=== PATIENT | female | born 1935 | race Caucasian/White ===

== ENCOUNTER 2022-08-28 12:57 | Inpatient (IN) | payer OTHER ==
[2022-08-28 14:22] LABS: VENOUS BASE EXCESS 3.5 mmol/L (-2-2); VENOUS PH 7.396 (7.310-7.410)
[2022-08-28 14:28] LABS: INR 1.12 (0.83-1.09)
[2022-08-28 14:29] LABS: BASO % 0.7 % (0-2.0); EOS % 1.6 % (0-4.5); HEMATOCRIT 47.2 % (32.4-45.2); HEMOGLOBIN 15.3 GM/dL (10.7-15.3); LYMPH % 17.4 % (8-40); MCH 29.6 pg (25.7-33.7); MCHC 32.4 g/dl (32.0-36.0); MEAN CELL VOLUME 91.1 fl (80-96); MEAN PLT VOLUME 8.8 fl (7.5-11.1); MONO % 8.9 % (3.8-10.2); NEUT % 71.4 % (42.8-82.8); PLATELET COUNT 253 10^3/uL (134-434); RBC 5.18 M/mm3 (3.60-5.2); RDW 15.8 % (11.6-15.6)
[2022-08-28 14:31] LABS: ACTIVATED PTT 28.8 SECONDS (25.2-36.5)
[2022-08-28 14:45] LABS: POTASSIUM 4.1 mmol/L (3.5-5.1)
[2022-08-28 14:47] LABS: CALCIUM 8.9 mg/dL (8.5-10.1)
[2022-08-28 14:48] LABS: ALBUMIN 3.5 g/dl (3.4-5.0); MAGNESIUM 2.2 mg/dL (1.8-2.4)
[2022-08-28 14:51] LABS: CREATININE 0.8 mg/dL (0.55-1.3); PHOSPHOROUS 2.6 mg/dL (2.5-4.9)
[2022-08-28 14:52] LABS: TOT PROT 6.6 g/dl (6.4-8.2)
[2022-08-28 14:53] LABS: BILIRUBIN,TOTAL 0.7 mg/dL (0.2-1)
[2022-08-28 14:56] LABS: N-TERMINAL BNP 6626.7 pg/ml (5-450)
[2022-08-28 15:07] LABS: BLOOD UREA NITROGEN 22.4 mg/dL (7-18)
[2022-08-28] MEDS ORDERED: FUROSEMIDE 40 MG/4 ML INJECTABLE VIAL IVPUSH ONE (15:51)
[2022-08-28] MEDS ORDERED: FUROSEMIDE 40 MG/4 ML INJECTABLE VIAL ONE (15:57)
[2022-08-28 16:40] LABS: EPI CELLS 19 /uL (0-25.1); HYALINE CASTS 0 /uL (0-3.1); PH,URINE 7.5 (5.0-8.0); URINE APPEARANCE CLEAR; URINE BACTERIA 206 /uL (0-1359); URINE BILIRUBIN NEGATIVE (NEGATIVE); URINE COLOR YELLOW; URINE GLUCOSE (UA) NEGATIVE (NEGATIVE); URINE KETONE NEGATIVE (NEGATIVE); URINE LEUK ESTERASE 2+ (NEGATIVE); URINE NITRITE NEGATIVE (NEGATIVE); URINE PROTEIN NEGATIVE (NEGATIVE); URINE RBC 9 /uL (0-23.9); URINE WBC 18 /uL (0-25.8)
[2022-08-28] MEDS ORDERED: METOPROLOL TARTRATE 5 MG/5 ML VIAL IVPUSH ONE (17:54)
[2022-08-28] MEDS: metoPROLOL SUCCINATE 25 MG TAB.SR.24H (FP) PO SCH (18:53)
[2022-08-28] MEDS: APIXABAN 2.5 MG TABLET PO SCH (21:06)
[2022-08-28] MEDS ORDERED: PATIENT'S OWN MEDICATION (NON-FORMULARY) (Dorzolamide/Timolol/Pf [Dorzolamide-Timolol 2%-0 OU SCH (22:00)
[2022-08-28] MEDS: TIMOLOL 0.5% OPHTHALMIC SOL 5 ML BOTTLE OU SCH (22:25)
[2022-08-28] MEDS: BUDESONIDE/FORMETEROL FUMARATE 160/4.5 mcg INHALER IH SCH (22:25)
[2022-08-28] MEDS: LATANOPROST 0.005% OPHTH SOLN 2.5ML BOTTLE OU SCH (22:25)
[2022-08-28] MEDS: DORZOLAMIDE 2% HCL OPHTHALMIC SOLUTION 10 ML BOTTLE OU SCH (22:25)
[2022-08-29 07:39] LABS: HEMATOCRIT 44.5 % (32.4-45.2); HEMOGLOBIN 14.4 GM/dL (10.7-15.3); MCH 29.5 pg (25.7-33.7); MCHC 32.3 g/dl (32.0-36.0); MEAN CELL VOLUME 91.1 fl (80-96); MEAN PLT VOLUME 8.4 fl (7.5-11.1); PLATELET COUNT 220 10^3/uL (134-434); RBC 4.88 M/mm3 (3.60-5.2); RDW 15.5 % (11.6-15.6); WHITE BLOOD COUNT 7.4 K/mm3 (4.0-10.0)
[2022-08-29 08:03] LABS: BLOOD UREA NITROGEN 25.7 mg/dL (7-18); CALCIUM 9.1 mg/dL (8.5-10.1)
[2022-08-29 08:06] LABS: CREATININE 0.8 mg/dL (0.55-1.3)
[2022-08-29 08:07] LABS: TOT PROT 5.7 g/dl (6.4-8.2)
[2022-08-29 08:08] LABS: BILIRUBIN,TOTAL 0.8 mg/dL (0.2-1)
[2022-08-29] MEDS: ALBUTEROL SO4 2.5/IPRATROPIUM 0.5 INH SOL 3 ML VIAL.NEB. NEB SCH ×4 (08:34→20:05)
[2022-08-29] MEDS: APIXABAN 2.5 MG TABLET PO SCH ×2 (11:19→21:21)
[2022-08-29] MEDS: metoPROLOL SUCCINATE 25 MG TAB.SR.24H (FP) PO SCH (11:19)
[2022-08-29] MEDS: FUROSEMIDE 40 MG/4 ML INJECTABLE VIAL IVPUSH SCH (11:20)
[2022-08-29] MEDS: BUDESONIDE/FORMETEROL FUMARATE 160/4.5 mcg INHALER IH SCH ×2 (11:21→21:21)
[2022-08-29] MEDS: TIMOLOL 0.5% OPHTHALMIC SOL 5 ML BOTTLE OU SCH ×2 (11:22→21:21)
[2022-08-29] MEDS: DORZOLAMIDE 2% HCL OPHTHALMIC SOLUTION 10 ML BOTTLE OU SCH ×2 (11:22→21:21)
[2022-08-29] MEDS: LATANOPROST 0.005% OPHTH SOLN 2.5ML BOTTLE OU SCH (21:21)
[2022-08-30 07:35] LABS: EOS % 4.6 % (0-4.5); HEMATOCRIT 43.1 % (32.4-45.2); LYMPH % 17.1 % (8-40); MCH 30.3 pg (25.7-33.7); MCHC 32.5 g/dl (32.0-36.0); MEAN CELL VOLUME 93.4 fl (80-96); MEAN PLT VOLUME 8.6 fl (7.5-11.1); MONO % 9.1 % (3.8-10.2); NEUT % 68.2 % (42.8-82.8); PLATELET COUNT 210 10^3/uL (134-434); RBC 4.61 M/mm3 (3.60-5.2); RDW 15.9 % (11.6-15.6); WHITE BLOOD COUNT 7.6 K/mm3 (4.0-10.0)
[2022-08-30] MEDS: ALBUTEROL SO4 2.5/IPRATROPIUM 0.5 INH SOL 3 ML VIAL.NEB. NEB SCH ×4 (07:40→19:50)
[2022-08-30 07:49] LABS: POTASSIUM 4.8 mmol/L (3.5-5.1)
[2022-08-30 08:01] LABS: BLOOD UREA NITROGEN 25.3 mg/dL (7-18)
[2022-08-30 08:04] LABS: CREATININE 0.7 mg/dL (0.55-1.3)
[2022-08-30] MEDS: FUROSEMIDE 40 MG/4 ML INJECTABLE VIAL IVPUSH SCH (10:09)
[2022-08-30] MEDS: metoPROLOL SUCCINATE 25 MG TAB.SR.24H (FP) PO SCH (10:09)
[2022-08-30] MEDS: TIMOLOL 0.5% OPHTHALMIC SOL 5 ML BOTTLE OU SCH ×2 (10:09→21:31)
[2022-08-30] MEDS: DORZOLAMIDE 2% HCL OPHTHALMIC SOLUTION 10 ML BOTTLE OU SCH ×2 (10:09→21:31)
[2022-08-30] MEDS: APIXABAN 2.5 MG TABLET PO SCH ×2 (10:09→21:27)
[2022-08-30] MEDS: BUDESONIDE/FORMETEROL FUMARATE 160/4.5 mcg INHALER IH SCH ×2 (10:10→21:29)
[2022-08-30] MEDS: VALSARTAN 40 MG TABLET PO SCH (13:49)
[2022-08-30] MEDS: methylPREDNISolone NA SUCC 40 MG/1 ML VIAL IVPUSH SCH ×2 (15:36→21:27)
[2022-08-30] MEDS: NYSTATIN/TRIAMCINOLONE TOPICAL OINTMENT 15 GM TUBE TP SCH ×2 (15:36→21:30)
[2022-08-30] MEDS: LATANOPROST 0.005% OPHTH SOLN 2.5ML BOTTLE OU SCH (21:30)
[2022-08-31] MEDS: methylPREDNISolone NA SUCC 40 MG/1 ML VIAL IVPUSH SCH ×2 (02:03→10:19)
[2022-08-31] MEDS: ALBUTEROL SO4 2.5/IPRATROPIUM 0.5 INH SOL 3 ML VIAL.NEB. NEB SCH ×4 (07:39→19:57)
[2022-08-31] MEDS: APIXABAN 2.5 MG TABLET PO SCH ×2 (10:16→21:44)
[2022-08-31] MEDS: NYSTATIN/TRIAMCINOLONE TOPICAL OINTMENT 15 GM TUBE TP SCH ×2 (10:16→21:45)
[2022-08-31] MEDS: metoPROLOL SUCCINATE 25 MG TAB.SR.24H (FP) PO SCH (10:16)
[2022-08-31] MEDS: PANTOPRAZOLE 40 MG TABLET PO SCH (10:16)
[2022-08-31] MEDS: VALSARTAN 40 MG TABLET PO SCH (10:16)
[2022-08-31] MEDS: BUDESONIDE/FORMETEROL FUMARATE 160/4.5 mcg INHALER IH SCH ×2 (10:17→21:45)
[2022-08-31] MEDS: TIMOLOL 0.5% OPHTHALMIC SOL 5 ML BOTTLE OU SCH ×2 (10:18→21:45)
[2022-08-31] MEDS: DORZOLAMIDE 2% HCL OPHTHALMIC SOLUTION 10 ML BOTTLE OU SCH ×2 (10:19→21:46)
[2022-08-31] MEDS: amLODIPine BESYLATE 2.5 MG TABLET (FP) PO SCH (10:23)
[2022-08-31] MEDS ORDERED: methylPREDNISolone NA SUCC 40 MG/1 ML VIAL IVPUSH SCH (14:00)
[2022-08-31 19:49] LABS: BASO % 0.1 % (0-2.0); EOS % 0.1 % (0-4.5); HEMATOCRIT 43.1 % (32.4-45.2); HEMOGLOBIN 14.2 GM/dL (10.7-15.3); LYMPH % 7.5 % (8-40); MCH 30.5 pg (25.7-33.7); MCHC 33.1 g/dl (32.0-36.0); MEAN CELL VOLUME 92.3 fl (80-96); MEAN PLT VOLUME 8.6 fl (7.5-11.1); NEUT % 84.3 % (42.8-82.8); PLATELET COUNT 243 10^3/uL (134-434); RBC 4.67 M/mm3 (3.60-5.2); RDW 16.2 % (11.6-15.6); WHITE BLOOD COUNT 12.5 K/mm3 (4.0-10.0)
[2022-08-31 20:24] LABS: POTASSIUM 3.6 mmol/L (3.5-5.1)
[2022-08-31 20:25] LABS: CALCIUM 8.5 mg/dL (8.5-10.1)
[2022-08-31 20:27] LABS: BLOOD UREA NITROGEN 26.7 mg/dL (7-18); MAGNESIUM 1.9 mg/dL (1.8-2.4)
[2022-08-31 20:29] LABS: CREATININE 0.7 mg/dL (0.55-1.3)
[2022-08-31 20:31] LABS: BILIRUBIN,TOTAL 0.5 mg/dL (0.2-1)
[2022-08-31] MEDS: SODIUM CHLORIDE NASAL SPRAY 44 ML BOTTLE NS SCH ×2 (21:45→22:13)
[2022-08-31] MEDS: LATANOPROST 0.005% OPHTH SOLN 2.5ML BOTTLE OU SCH (21:46)
[2022-09-01 06:33] VITALS: RESP 18
[2022-09-01] MEDS: ALBUTEROL SO4 2.5/IPRATROPIUM 0.5 INH SOL 3 ML VIAL.NEB. NEB SCH ×2 (08:00→12:30)
[2022-09-01] MEDS: TIMOLOL 0.5% OPHTHALMIC SOL 5 ML BOTTLE OU SCH (09:47)
[2022-09-01] MEDS: amLODIPine BESYLATE 2.5 MG TABLET (FP) PO SCH (09:47)
[2022-09-01] MEDS: DORZOLAMIDE 2% HCL OPHTHALMIC SOLUTION 10 ML BOTTLE OU SCH (09:47)
[2022-09-01] MEDS: metoPROLOL SUCCINATE 25 MG TAB.SR.24H (FP) PO SCH (09:47)
[2022-09-01] MEDS: PANTOPRAZOLE 40 MG TABLET PO SCH (09:47)
[2022-09-01] MEDS: VALSARTAN 40 MG TABLET PO SCH (09:47)
[2022-09-01] MEDS: BUDESONIDE/FORMETEROL FUMARATE 160/4.5 mcg INHALER IH SCH (09:48)
[2022-09-01] MEDS: APIXABAN 2.5 MG TABLET PO SCH (09:48)
[2022-09-01] MEDS: NYSTATIN/TRIAMCINOLONE TOPICAL OINTMENT 15 GM TUBE TP SCH (09:49)
[2022-09-01 15:27] VITALS: BP 126/56; PULSE 84; TEMP 97.6
[2022-09-01 15:48] VITALS: BMI 18.2
== END 2022-09-01 16:29 | disposition home or self-care (01) | DRG 291 ==
LOC: JER 12:57 → JERBED 15:58 → J4S 18:26
PROVIDERS: ADMIT Internal Medicine; ATTEND Nurse Practitioner Family
DX: I11.0 Hypertensive heart disease with heart failure (principal); I50.43 Acute on chronic combined systolic (congestive) and diastolic (congestive) heart failure; J96.21 Acute and chronic respiratory failure with hypoxia; I45.2 Bifascicular block; I48.0 Paroxysmal atrial fibrillation; H35.30 Unspecified macular degeneration; H40.9 Unspecified glaucoma; I71.40 Abdominal aortic aneurysm, without rupture, unspecified; R91.1 Solitary pulmonary nodule; E78.5 Hyperlipidemia, unspecified; M17.12 Unilateral primary osteoarthritis, left knee; I08.1 Rheumatic disorders of both mitral and tricuspid valves; I27.21 Secondary pulmonary arterial hypertension; I25.10 Atherosclerotic heart disease of native coronary artery without angina pectoris; J47.9 Bronchiectasis, uncomplicated; Z99.81 Dependence on supplemental oxygen
CPT/HCPCS: 0241U-QW; 36415; 71045-TC-FY; 80048; 80053; 81003; 82803; 83735; 83880; 84100; 84439; 84443; 84481; 84484; 85025; 85027; 85610; 85730; 86850; 86900; 86901; 87086; 93005; 93010; 93306-TC; 94640; 97116-GP; 99285-25